=== PATIENT | female | born 1950 | race Caucasian/White ===

== ENCOUNTER → 2016-08-04 | Outpatient (CLI) | payer MEDICARE, BC | LOC: MHCPAIN 11:39 | DX: G89.29 Other chronic pain (principal); M47.817 Spondylosis without myelopathy or radiculopathy, lumbosacral region; M53.3 Sacrococcygeal disorders, not elsewhere classified; M41.9 Scoliosis, unspecified | CPT/HCPCS: G0463 ==

== ENCOUNTER → 2016-08-07 | Outpatient (CLI) | payer MEDICARE, BC | LOC: MHCPAIN 07:41 | DX: M47.817 Spondylosis without myelopathy or radiculopathy, lumbosacral region (principal) ==

== ENCOUNTER → 2016-08-13 | Outpatient (CLI) | payer MEDICARE, BC | LOC: MHCPAIN 09:06 | DX: G89.29 Other chronic pain (principal); M47.817 Spondylosis without myelopathy or radiculopathy, lumbosacral region; M53.3 Sacrococcygeal disorders, not elsewhere classified | CPT/HCPCS: G0463 ==

== ENCOUNTER → 2016-08-14 | Outpatient (CLI) | payer MEDICARE, BC | LOC: MHCPAIN 10:22 | DX: M47.817 Spondylosis without myelopathy or radiculopathy, lumbosacral region (principal) ==

== ENCOUNTER → 2016-08-20 | Outpatient (CLI) | payer MEDICARE, BC | LOC: MHCPAIN 09:08 | DX: G89.29 Other chronic pain (principal); M47.817 Spondylosis without myelopathy or radiculopathy, lumbosacral region; M53.3 Sacrococcygeal disorders, not elsewhere classified | CPT/HCPCS: G0463 ==

== ENCOUNTER → 2016-08-21 | Outpatient (CLI) | payer MEDICARE, BC | LOC: MHCPAIN 11:47 | DX: M47.817 Spondylosis without myelopathy or radiculopathy, lumbosacral region (principal) | CPT/HCPCS: J1100; J2250; J3010 ==

== ENCOUNTER → 2016-08-28 | Outpatient (CLI) | payer MEDICARE, BC | LOC: MHCPAIN 11:31 | DX: M47.817 Spondylosis without myelopathy or radiculopathy, lumbosacral region (principal) | CPT/HCPCS: J1100; J2250; J3010 ==

== ENCOUNTER → 2016-09-26 | Outpatient (CLI) | payer MEDICARE, BC | LOC: MHCPAIN 08:21 | DX: G89.29 Other chronic pain (principal); M47.817 Spondylosis without myelopathy or radiculopathy, lumbosacral region; M53.3 Sacrococcygeal disorders, not elsewhere classified | CPT/HCPCS: G0463 ==

== ENCOUNTER → 2017-02-03 | Outpatient (CLI) | payer MEDICARE, BC | LOC: MHCPAIN 08:09 | DX: G89.29 Other chronic pain (principal); M47.817 Spondylosis without myelopathy or radiculopathy, lumbosacral region; M53.3 Sacrococcygeal disorders, not elsewhere classified | CPT/HCPCS: G0463 ==

== ENCOUNTER → 2017-08-19 | Outpatient (CLI) | payer MEDICARE, BC ==
[~2017-08-19] MED LIST: ALEVE 220MG220 MG PO; CENTRUM SILVER1 CTB PO; NEXIUM 20MG20 MG PO; PROBIOTIC FORMU1 CAP PO; TYLENOL 8 HR PO; ZESTRIL 5MG5 MG PO
== END ==
LOC: COL.RAD 07:13
DX: D17.5 Benign lipomatous neoplasm of intra-abdominal organs (principal); K86.89 Other specified diseases of pancreas; K42.9 Umbilical hernia without obstruction or gangrene; I70.0 Atherosclerosis of aorta; I77.1 Stricture of artery; M41.86 Other forms of scoliosis, lumbar region; M46.86 Other specified inflammatory spondylopathies, lumbar region; M47.817 Spondylosis without myelopathy or radiculopathy, lumbosacral region; M51.27 Other intervertebral disc displacement, lumbosacral region; M48.07 Spinal stenosis, lumbosacral region; N85.4 Malposition of uterus
CPT/HCPCS: Q9967

== ENCOUNTER → 2018-03-05 | Outpatient (CLI) | payer MEDICARE, BC | LOC: COL.RAD 06:41 | DX: R10.13 Epigastric pain (principal) | CPT/HCPCS: A9537 ==

== ENCOUNTER → 2018-12-27 | Outpatient (CLI) | payer MEDICARE, BC | LOC: MHCPAIN 10:12 | DX: G89.29 Other chronic pain (principal); M47.817 Spondylosis without myelopathy or radiculopathy, lumbosacral region; M53.3 Sacrococcygeal disorders, not elsewhere classified | CPT/HCPCS: G0463 ==

== ENCOUNTER → 2019-02-15 | Outpatient (CLI) | payer MEDICARE, BC | LOC: MHCPAIN 10:02 | DX: G89.29 Other chronic pain (principal); M47.817 Spondylosis without myelopathy or radiculopathy, lumbosacral region; M53.3 Sacrococcygeal disorders, not elsewhere classified | CPT/HCPCS: G0463 ==

== ENCOUNTER → 2019-08-30 | Outpatient (CLI) | payer MEDICARE, BC | LOC: MHCPAIN 09:12 | DX: M47.812 Spondylosis without myelopathy or radiculopathy, cervical region (principal); M54.2 Cervicalgia; M54.12 Radiculopathy, cervical region; G89.29 Other chronic pain | CPT/HCPCS: G0463 ==

== ENCOUNTER → 2019-09-05 | Outpatient (CLI) | payer MEDICARE, BC | LOC: COL.RAD 14:00 | DX: M50.123 Cervical disc disorder at C6-C7 level with radiculopathy (principal) ==

== ENCOUNTER → 2019-09-19 | Outpatient (CLI) | payer MEDICARE, BC | LOC: MHCPAIN 12:04 | DX: M47.812 Spondylosis without myelopathy or radiculopathy, cervical region (principal); M54.2 Cervicalgia; M54.12 Radiculopathy, cervical region; G89.29 Other chronic pain | CPT/HCPCS: G0463 ==

== ENCOUNTER → 2021-01-22 | Outpatient (CLI) | payer MEDICARE, BC ==
[~2021-01-22] MED LIST changes: +ASPIRIN 81M81 MG/TA2 PO; +CALTRATE-600 W600 MG PO; +CRESTOR 10MG10 MG PO; +LIORESAL 1010 MG/TAB PO; +PAMELOR 10MG10 MG PO; +THE MEDICINE S200 M2 PO; +ZESTRIL 10MG10 MG PO; -ZESTRIL 5MG5 MG PO
== END ==
LOC: MHCPAIN 12:54
DX: M47.812 Spondylosis without myelopathy or radiculopathy, cervical region (principal); M54.2 Cervicalgia; G89.29 Other chronic pain
CPT/HCPCS: G0463

== ENCOUNTER → 2021-01-28 | Outpatient (CLI) | payer MEDICARE, BC | LOC: MC.RAD 09:25 | DX: Z12.31 Encounter for screening mammogram for malignant neoplasm of breast (principal) ==

== ENCOUNTER 2021-02-05 11:01 | Outpatient (CLI) | payer MEDICARE, BC ==
[~2021-02-05 11:01] MED LIST changes: -ASPIRIN 81M81 MG/TA2 PO; -CALTRATE-600 W600 MG PO; -CRESTOR 10MG10 MG PO; -LIORESAL 1010 MG/TAB PO; -PAMELOR 10MG10 MG PO; -THE MEDICINE S200 M2 PO
[2021-02-05 11:40] VITALS: BP 132/71; PULSE 77; TEMP 99
[2021-02-05 12:00] VITALS: BP 101/55; PULSE 74
[2021-02-05 12:25] VITALS: BP 102/44; PULSE 70
[2021-02-05 12:40] VITALS: BP 133/61; PULSE 70
[2021-02-05 13:00] VITALS: BP 126/57; PULSE 101
[2021-02-05] MEDS ORDERED: CRESTOR 10MG10 MG PO (14:27)
[2021-02-05] MEDS ORDERED: PAMELOR 10MG10 MG PO (14:28)
[2021-02-05] MEDS ORDERED: LIORESAL 1010 MG/TAB PO (14:29)
[2021-02-05] MEDS ORDERED: ASPIRIN 81M81 MG/TA2 PO (14:29)
[2021-02-05] MEDS ORDERED: CALTRATE-600 W600 MG PO (14:29)
[2021-02-05] MEDS ORDERED: THE MEDICINE S200 M2 PO (14:30)
== END 2021-02-05 14:32 ==
LOC: EUO 11:01
DX: J02.9 Acute pharyngitis, unspecified (principal); Z23 Encounter for immunization
CPT/HCPCS: M0243; Q0244

== ENCOUNTER → 2022-06-12 | Outpatient (CLI) | payer MEDICARE, BC ==
[~2022-06-12] MED LIST changes: +ASPIRIN 81M81 MG/TA2 PO; +CALTRATE-600 W600 MG PO; +CRESTOR 10MG10 MG PO; +LIORESAL 1010 MG/TAB PO; +PAMELOR 10MG10 MG PO; +THE MEDICINE S200 M2 PO
== END ==
LOC: MC.RAD 14:15
DX: Z12.31 Encounter for screening mammogram for malignant neoplasm of breast (principal)

== ENCOUNTER → 2023-04-30 | Outpatient (CLI) | payer MEDICARE | LOC: MC.RAD 09:30 | DX: Z12.31 Encounter for screening mammogram for malignant neoplasm of breast (principal) ==